=== PATIENT | male | born 1945 | race Caucasian/White ===

== ENCOUNTER → 2016-12-02 | Outpatient (CLI) | payer OTHER ==
[~2016-12-02] MED LIST: ATOR-22 PO; OXYC-57 PO
--- NOTE | 2016-12-02 15:09 | DIAGNOSTIC IMAGING REPORT ---
CHEST 2 VIEWS ROUTINE CLINICAL HISTORY: DYSPNEA, COUGH dyspnea COMPARISON STUDY: 08/14/2010 FINDINGS: The bones soft tissues and hemidiaphragms are normal. The cardiomediastinal silhouette is normal. The lungs are clear. The pulmonary vasculature is normal. IMPRESSION: Negative chest. Electronically signed by: Jones Grayson M.D. 12/02/2016 3:08 PM Dictated Date/Time: 12/02/2016 3:07 PM
== END | disposition home or self-care (01) ==
LOC: C.RAD 14:49
PROVIDERS: ATTEND Internal Medicine
DX: R06.00 Dyspnea, unspecified (principal); R05 Cough

== ENCOUNTER → 2016-12-04 | Outpatient (CLI) | payer OTHER ==
--- NOTE | 2016-12-24 17:18 | PULMONARY FUNCTION TEST ---
CLINICAL DATA: A 71-year-old male with a height of 60 inches and a weight of [address] Rivers for evaluation of dyspnea and persistent cough. Spirometry pre- and post-bronchodilator, lung volumes, and DLCO was performed. Pre-bronchodilator spirometry demonstrates mild obstructive airways disease. FVC was 156% of predicted. FEV1 was 109% of predicted. [id number] was 37% of predicted. There was a 10% improvement in FEF 25-75 after inhaled bronchodilator. Lung volumes were technically difficult for the patient to do. They do suggest some evidence of air trapping. RV was 224% of predicted. Diffusion capacity was normal. IMPRESSION: Mild obstructive airways disease with minimal improvement after inhaled bronchodilator and evidence of air trapping on lung volume testing. MTDD
== END | disposition home or self-care (01) ==
LOC: C.RC 10:15
PROVIDERS: ATTEND Internal Medicine
DX: R06.02 Shortness of breath (principal); R06.2 Wheezing

== ENCOUNTER → 2016-12-19 | Outpatient (CLI) | payer OTHER ==
--- NOTE | 2016-12-19 14:12 | EXERCISE STRESS ECHO ---
*NOTICE TO RECEIVING [employer] This information is strictly Confidential and protected under [place] law. [place] law prohibits you from making any further disclosure of this information unless further disclosure is expressly permitted by the written consent of the person to whom it pertains or is authorized by law. A general authorization for the release of medical or other information is not sufficient for this purpose. Hospital accepts no responsibility if the information is made available to any other person, INCLUDING THE PATIENT. Interpretation Summary * Name: INO YOUSSEF Study Date: 12/19/2016 08:36 AM BP: 138/83 mmHg * Patient Location: [facility] HR: 55 * : 1945 (M/d/yyyy) Gender: Male Height: 60 in * Age: 71 yrs Ethnicity: [place] Weight: 199 lb * Ordering Physician: Phoenix Monterroso * Referring Physician: Phoenix Monterroso * Performed By: Yoselin Barragan [facility] * * Reason For Study: EXERTIONAL DYSPNEA * BSA: 1.9 m2 * Hypertensive blood pressure response to exercise. * Low normal resting left ventricular systolic function. * The exercise echocardiographic examination is normal without resting left ventricular wall motion abnormalities or inducible ischemia. * The stress echocardiogram is negative for inducible ischemia. * The stress ECG response was normal * -- Conclusions -- * Aortic valve sclerosis mild, without significant aortic valvular stenosis. Procedure Details * ECHOEX, CPT #[id number] * ECHO COLOR FLOW, CPT #[id number] * ECHO DOPPLER, CPT #[id number] Left Ventricle * The left ventricle is normal in size. * There is normal left ventricular wall thickness. * The left ventricular ejection fraction increases normally with stress. The left ventricular end-systolic cavity size reduces post-stress (normal response). The left ventricular wall motion with stress is normal. * Left ventricular systolic function is low normal. * Ejection Fraction = 50-55%. * Resting wall motion: Normal. Stress wall motion: Appropriate increase in Left ventricular systolic function and decrease in cavity size. No stress induced segmental wall motion abnormalities. * No regional wall motion abnormalities noted. Right Ventricle * The right ventricle is normal in size and function. Atria * The left atrial size is normal. * Right atrial size is normal. * No ASD detected; PFO is not assessed. Mitral Valve * The mitral valve is normal. * There is no mitral valve stenosis. * There is trace mitral regurgitation. Tricuspid Valve * The tricuspid valve is not well visualized, but is grossly normal. * There is no tricuspid stenosis. * Significant tricuspid regurgitation is absent. Aortic Valve * The aortic valve is trileaflet. * The aortic valve opens well. * Aortic valve sclerosis mild, without significant aortic valvular stenosis. * Aortic stenosis is absent. * No aortic regurgitation is present. Pulmonic Valve * The pulmonic valve is not well visualized. * The pulmonary valve is inadequately visualized, but the Doppler data is adequate for interpretation. * Pulmonic stenosis is absent. * There is no significant pulmonary regurgitation. Great Vessels * Mild aortic root dilatation. Stress Parameters * The baseline ECG displays normal ST segments. * The stress ECG response was normal * Arrhythmia induced during stress: occasional PVC's. * Arrhythmia noted in recovery: occasional PAC's. * The stress portion of this study was personally supervised by the undersigned interpreting physician. * Rest heart rate was '58' BPM. * Rest blood pressure was '138/83' * Maximum heart rate achieved was 131 bpm. * Maximum heart rate was 89 % of maximum age-predicted heart rate. * Maximum blood pressure was '213/71' * Total exercise time was '06:00' * Maximum exercise MET level achieved was '7.00' METS * Maximum treadmill speed was '2.50' miles per hour. * Maximum treadmill elevation was '12.00'% grade. * The patient exhibited a hypertensive response with stress. * Exercise was terminated due to 'hypertension' * No complaints of anginal symptoms or dyspnea. MMode 2D Measurements and Calculations IVSd 1.0 cm IVSs 1.4 cm LVIDd 4.7 cm LVIDs 3.5 cm LVPWd 1.1 cm LVPWs 1.0 cm IVS/LVPW 0.95 FS 25.5 % EDV(Teich) 102.7 ml ESV(Teich) 51.1 ml EF(Teich) 50.2 % EDV(cubed) 104.2 ml ESV(cubed) 43.1 ml EF(cubed) 58.6 % % IVS thick 39.9 % % LVPW thick -4.88 % LV mass(C)d 175.4 grams LV mass(C)dI 94.1 grams/m\S\2 LV mass(C)s 140.3 grams LV mass(C)sI 75.3 grams/m\S\2 SV(Teich) 51.6 ml SI(Teich) 27.7 ml/m\S\2 SV(cubed) 61.1 ml SI(cubed) 32.8 ml/m\S\2 Ao root diam 4.3 cm Ao root area 14.4 cm\S\2 LA dimension 2.3 cm LA/Ao 0.55 LVOT diam 2.0 cm LVOT area 3.3 cm\S\2 Doppler Measurements and Calculations MV E max travis 78.2 cm/sec MV A max travis 65.8 cm/sec MV E/A 1.2 MV P1/2t max travis 85.9 cm/sec MV P1/2t 62.7 msec MVA(P1/2t) 3.5 cm\S\2 MV dec slope 401.1 cm/sec\S\2 MV dec time 0.32 sec Ao V2 max 118.3 cm/sec Ao max PG 5.6 mmHg Ao max PG (full) 2.2 mmHg CHRISTOPHER(V,A) 2.5 cm\S\2 CHRISTOPHER(V,D) 2.5 cm\S\2 LV V1 max PG 3.4 mmHg LV V1 max 92.4 cm/sec MR max travis 497.4 cm/sec MR max PG 98.9 mmHg PA V2 max 84.7 cm/sec PA max PG 2.9 mmHg
== END | disposition home or self-care (01) ==
LOC: C.CPL 08:11
PROVIDERS: ATTEND Internal Medicine
DX: R06.09 Other forms of dyspnea (principal)

== ENCOUNTER → 2017-01-12 | Outpatient (CLI) | payer OTHER ==
[2017-01-12 19:33] LABS: FREE PSA 1.17 ng/ml; PROSTATE SPECIFIC ANTIGEN 5.08 ng/ml (0.000-4.000)
== END | disposition home or self-care (01) ==
LOC: C.LABSPEC 17:54
PROVIDERS: ATTEND Urology
DX: R97.20 Elevated prostate specific antigen [PSA] (principal)

== ENCOUNTER → 2017-02-24 | Outpatient (CLI) | payer OTHER ==
[2017-02-24 18:05] LABS: BASO % 0.6 %; BASO ABS # 0.05 K/uL (0-0.2); COMPLETE YES; EOS % 1.6 %; HEMATOCRIT 40.1 % (42-52); IG% 0.4 %; LYMPH % 23.3 %; LYMPH ABS # 1.98 K/uL (1.2-3.4); MEAN CELL VOLUME 92.8 fL (80-100); MEAN CORPUSCULAR HEMOGLOBIN 31.3 pg (25-34); MEAN CORPUSCULAR HGB CONC 33.7 g/dl (32-36); MEAN PLATELET VOLUME 9.9 fL (7.4-10.4); MONO % 8.8 %; NEUT % 65.3 %; PLATELET COUNT 224 K/uL (130-400); RED BLOOD COUNT 4.32 M/uL (4.7-6.1); WHITE BLOOD COUNT 8.49 K/uL (4.8-10.8)
[2017-02-24 18:34] LABS: ALT/SGPT 34 U/L (12-78); AST/SGOT 30 U/L (15-37); BLOOD UREA NITROGEN 13 mg/dl (7-18); BUN/CREATININE RATIO 12.5 (10-20); CALCIUM 8.7 mg/dl (8.5-10.1); CARBON DIOXIDE 26 mmol/L (21-32); CHLORIDE 108 mmol/L (98-107); GLUCOSE 86 mg/dl (70-99); POTASSIUM 4.1 mmol/L (3.5-5.1); SODIUM 142 mmol/L (136-145)
[2017-02-24 18:36] LABS: ALB/GLOB RATIO 1.3 (0.9-2); ALKALINE PHOSPHATASE 100 U/L (45-117); CHOLESTEROL 160 mg/dl (0-200); CHOLESTEROL/HDL RATIO 3.2; HDL CHOLESTEROL 50 mg/dl; TRIGLYCERIDES 156 mg/dl (0-150); VERY LOW DENSITY LIPOPROT CALC 31 mg/dl
== END | disposition home or self-care (01) ==
LOC: C.LABSPEC 17:36
PROVIDERS: ATTEND Internal Medicine
DX: E78.5 Hyperlipidemia, unspecified (principal); J44.9 Chronic obstructive pulmonary disease, unspecified; E66.09 Other obesity due to excess calories

== ENCOUNTER → 2017-09-10 | Outpatient (CLI) | payer OTHER ==
[2017-09-17 13:10] LABS: FECAL OCCULT BLOOD #1 NEGATIVE (NEGATIVE); FECAL OCCULT BLOOD #2 NEGATIVE (NEGATIVE); FECAL OCCULT BLOOD #3 NEGATIVE (NEGATIVE)
== END | disposition home or self-care (01) ==
LOC: C.LABSPEC 12:33
PROVIDERS: ATTEND Internal Medicine
DX: Z12.11 Encounter for screening for malignant neoplasm of colon (principal)

== ENCOUNTER → 2017-09-17 | Outpatient (CLI) | payer OTHER ==
[2017-09-17 15:46] LABS: CHOLESTEROL 203 mg/dl (0-200); LDL CHOLESTEROL (DIRECT) 136 mg/dl
== END | disposition home or self-care (01) ==
LOC: C.LABSPEC 14:58
PROVIDERS: ATTEND Internal Medicine
DX: E78.5 Hyperlipidemia, unspecified (principal)